=== PATIENT | male | born 1980 | race Two or more races ===

== ENCOUNTER 2021-02-19 14:11 | Outpatient (REF) | payer MEDICAID, SELFPAY ==
--- NOTE | ~2021-02-19 | XR_ITS ---
EXAMINATION: XR KNEE, RIGHT CLINICAL INFORMATION: Right knee pain. COMPARISON: Upright frontal views of both knee done on 02/28/2018 and 4 views of the right knee done on 11/12/2017. TECHNIQUE: Upright AP, lateral, tunnel, and sunrise views of the right knee. FINDINGS: The bony alignments are intact. The cortices are intact. Articular margins, joint space appear unremarkable. No evidence of any joint effusion. The soft tissues are unremarkable. Overall, no significant change since 02/28/2018 and 11/12/2017. XR/XR knee RT 3V IMPRESSION: Unremarkable radiographic appearance of the right knee, unchanged since prior study.
== END 2021-02-19 14:12 | disposition home or self-care (01) ==
LOC: HO.XRAY 14:11
PROVIDERS: Absent Provider Internal Medicine Geriatric Medicine; PCP Internal Medicine Geriatric Medicine; Visit Provider Emergency Medicine
DX: M25.561 Pain in right knee (principal)
CPT/HCPCS: 73562

== ENCOUNTER 2022-05-28 11:26 | Outpatient (REF) | payer MEDICAID, SELFPAY ==
--- NOTE | ~2022-05-28 | XR_ITS ---
EXAMINATION: XR KNEE, RIGHT CLINICAL INFORMATION: Chronic right knee pain COMPARISON: 02/19/2021 TECHNIQUE: Four views of the right knee. FINDINGS: Bones and soft tissues are normal. No fracture or joint effusion. Alignment is anatomic. Joint spaces are well maintained. No abnormal soft tissue calcification. XR/XR knee RT 4V IMPRESSION: Normal right knee.
--- NOTE | ~2022-05-28 | XR_ITS ---
EXAMINATION: XR SHOULDER, RIGHT CLINICAL INFORMATION: Chronic right shoulder pain COMPARISON: None TECHNIQUE: AP external rotation, Grashey, scapular Y, and axillary views of the right shoulder. FINDINGS: The bones and soft tissues are normal. No fracture. Glenohumeral and acromioclavicular alignment is anatomic with normal joint space. No abnormal soft tissue calcifications. XR/XR shoulder RT min 2V IMPRESSION: Normal right shoulder.
== END 2022-05-28 11:27 | disposition home or self-care (01) ==
LOC: HO.XRAY 11:26
PROVIDERS: PCP Internal Medicine Geriatric Medicine; Visit Provider Internal Medicine Geriatric Medicine
DX: M25.511 Pain in right shoulder (principal); M25.561 Pain in right knee
CPT/HCPCS: 73030; 73564

== ENCOUNTER 2023-08-04 07:28 | Outpatient (REF) | payer MEDICAID, SELFPAY ==
--- NOTE | ~2023-08-04 | MR_ITS ---
EXAMINATION: MR KNEE WITHOUT CONTRAST, RIGHT CLINICAL INFORMATION: Persistent chronic knee pain. COMPARISON: X-ray the right knee May 2022. TECHNIQUE: MRI of the knee without contrast was performed using routine sequences on a high-field scanner. FINDINGS: Exam is partially limited by image degrading motion artifact on multiple series with little improvement after series repetition. MENISCI: Medial Meniscus: Intact Lateral Meniscus: Intact LIGAMENTS: Cruciate: Intact Collateral: Intact EXTENSOR MECHANISM: Intact ARTICULAR CARTILAGE/BONE: Patellofemoral Compartment: Normal Medial Compartment: Normal Lateral Compartment: Normal JOINT FLUID AND BURSAE: Normal MR/MR knee RT wo con IMPRESSION: 1. Exam is partially limited by image degrading motion artifact on multiple series with little improvement after series repetition. 2. No abnormality detected.
== END 2023-08-04 07:29 | disposition home or self-care (01) ==
LOC: HO.MRI 07:28
PROVIDERS: PCP Internal Medicine Geriatric Medicine; Visit Provider Nurse Practitioner
DX: M25.561 Pain in right knee (principal); G89.29 Other chronic pain
CPT/HCPCS: 73721

== ENCOUNTER 2023-11-08 11:00 | Outpatient (RCR) | payer MEDICAID, SELFPAY | END 2023-11-08 13:46 | disposition home or self-care (01) | LOC: HO.PT 11:00 | PROVIDERS: PCP Internal Medicine Geriatric Medicine; Visit Provider Nurse Practitioner | DX: M54.50 Low back pain, unspecified (principal) | CPT/HCPCS: 97110; 97112; 97140; 97161 ==

== ENCOUNTER 2024-06-07 09:22 | Day surgery (SDC) | payer MEDICAID, SELFPAY ==
[2024-06-05 14:50] VITALS: BMI 25.8
--- NOTE | 2024-06-06 08:59 | HO.ANESPROP2 ---
Documented by User: Harini Fernandez NP 06/06/24 08:59 HPI - Anesthesia Eval Consult details Narrative: 43yo M for Colonoscopy [facility] Past Medical History Medical History Intermittent constipation Surgical History Surgical History No pertinent past surgical history Social History Social History Patient Tobacco Use Status: Current everyday Tobacco user Tobacco use type: Cigarette Cigarettes Per Day: 4 Use of substances other than those prescribed or required for medical reasons: Yes Substance Use Type Other:: last smoked 06/06 Substance Use Frequency: Daily Are you DNR?: No Advance Directives: No Advance Directives Information Provided: Yes Meds Allergies Allergy/AdvReac Type Severity Reaction Status Date / Time No Known Allergies Allergy Unverified 12/28/19 17:22 [No Known Allergies*] Home Medications ?Medication ?Instructions ?Recorded ?Confirmed ?Last Taken ?Type No Known Home Meds 06/05/24 06/05/24 Unknown History Exam Height,Weight and Vital Signs: Height 5 ft 8 in Weight 77.111 kg Assessment and Plan Assessment Anesthesia Assessment: Chart Reviewed Documented by User: Farzana Stewart MD 06/07/24 11:17 [facility] Past Medical History Medical History Intermittent constipation Family History Family history of problems with anesthesia: No Surgical History Surgical History No pertinent past surgical history History of Problems with Anesthesia: No Social History Social History Patient Tobacco Use Status: Current everyday Tobacco user Tobacco use type: Cigarette Cigarettes Per Day: 4 Use of substances other than those prescribed or required for medical reasons: Yes Substance Use Type Other:: last smoked 06/06 Substance Use Frequency: Daily Are you DNR?: No Advance Directives: No Advance Directives Information Provided: Yes Meds Allergies Allergy/AdvReac Type Severity Reaction Status Date / Time No Known Allergies Allergy Unverified 12/28/19 17:22 [No Known Allergies*] Home Medications ?Medication ?Instructions ?Recorded ?Confirmed ?Last Taken ?Type No Known Home Meds 06/05/24 06/05/24 Unknown History Exam Airway Mallampati Class: II TM Dist: >3cm Neck ROM: Full Heart: rrr Lungs: cta Assessment and Plan Assessment Anesthesia Assessment: Anesthesia Plan Discussed Final Anesthetic Review Family History of Problems with Anesthesia: No History of Problems with Anesthesia: No NPO: Yes ASA Class: III Final Preanesthetic Review: No Changes in Pt Med Stat, Meds/Allgs Chart Reviewed, Consent Obtained/Reviewed and Anes Risks/Benef Reviewed Patient Risk: Intermediate Procedure Risk: Low Anesthetic Plan Anesthetic Plan: MAC: Disposition: Standard PACU
[2024-06-07 10:48] VITALS: BP 113/83; PULSE 58; RESP 16; TEMP 36.4; O2SAT 100; BMI 25.8
[2024-06-07] MEDS: Lactated Ringers 1,000 ML 100 ML IVCONT (10:51)
[2024-06-07 12:01] VITALS: BP 86/52; PULSE 64; RESP 12; TEMP 36.3; O2SAT 97
--- NOTE | 2024-06-07 12:10 | PM.OP ---
Brief Operative Note Date of Service: 06/07/24 Pre-op diagnosis: Rectal bleeding Post-op diagnosis: other (Colon polyps, Internal/External Hemorrhoids) Procedure: Colonoscopy to the cecum and TI with hot snare polypectomy x 2 with placement of 2 Resolution clips on the polypectomy site at 30cm Surgeon: Gary Paez MD Anesthesia: MAC Was an Mechanical Design Drafter used for this Procedure?: No Estimated blood loss (mL): 0 Pathology: other (A. Polyp at 60cm B. Polyp at 30cm) Condition: stable Disposition: PACU
[2024-06-07 12:16] VITALS: BP 114/77; PULSE 77; RESP 16; O2SAT 97
[2024-06-07 12:31] VITALS: BP 114/76; PULSE 55; RESP 20; TEMP 36.2; O2SAT 100
--- NOTE | 2024-06-07 13:28 | OP_ITS ---
DATE OF SERVICE: 06/07/2024 SURGEON: Gary Paez MD INDICATIONS: The patient presents for evaluation of intermittent hematochezia. Full consent has been obtained from him for this, including risks of bleeding and perforation. PREOPERATIVE DIAGNOSIS: Hematochezia. POSTOPERATIVE DIAGNOSIS: PROCEDURE PERFORMED: Colonoscopy to the cecum and terminal ileum with hot snare polypectomy x2 with placement of 2 resolution clips on the polypectomy site at 30 cm. ESTIMATED BLOOD LOSS: COMPLICATIONS: ANESTHESIA: Medication used, monitored anesthesia care. ASSISTANTS: SPECIMENS: POSTOPERATIVE DIAGNOSES: Hematochezia, colon polyps, internal and external hemorrhoids. DESCRIPTION OF PROCEDURE: The patient was placed in the left side decubitus position. The digital rectal exam revealed some external hemorrhoidal tissue. The [employer] video pediatric colonoscope was entered into the rectum and advanced easily to the cecum. Once in the cecum, I did identify normal-appearing cecal pouch with appendiceal orifice and a normal-appearing ileocecal valve. The terminal ileum was cannulated and appeared normal. Scope was withdrawn back in the colon. The entire cecum and ileocecal valve appeared normal. The scope was slowly withdrawn assessing all mucosal surfaces carefully. Preparation was excellent. At 60 cm was an approximately 8 mm polyp, which was removed by hot snare polypectomy and recovered by suction. The polypectomy site appeared clean, without any sign of residual polyp nor bleeding. At 30 cm was an approximately 1.2 cm polyp on a short stalk, which was removed by hot snare polypectomy. The polyp was retrieved on the tip of the scope and brought out of the patient. The scope was readvanced back to the polypectomy site. The polypectomy site appeared clean, without any sign of residual polyp nor bleeding. Two resolution clips were applied to it with good deployment and good hemostasis. I did not visualize any other polyps, colitis, nor angiodysplasia. In the rectum, scope was retroflexed visualizing some internal hemorrhoids, but no other pathology. The rectal mucosa appeared normal. Scope was straightened and withdrawn from the patient. He tolerated the procedure well and was returned to the recovery area in stable condition. IMPRESSION: 1. Colon polyps. 2. Internal and external hemorrhoids. PLAN: The results of the pathology will be checked. I would recommend a repeat colonoscopy within 3 years assuming the polyps are tubular adenomas. He was advised not to use any aspirin and NSAIDs for at least 1 week. He was advised to use some Metamucil and/or MiraLAX regularly to help avoid constipation and straining as that has been an issue for him. He will otherwise see me on a p.r.n. basis. MD JAKOB Allred/BLAIR / [phone]
== END 2024-06-07 13:08 | disposition home or self-care (01) ==
PROVIDERS: PCP Internal Medicine Geriatric Medicine; Visit Provider Internal Medicine
PROC: 0DJD8ZZ Inspection of Lower Intestinal Tract, Via Natural or Artificial Opening Endoscopic (ICD-10-PCS; CPT 45378; principal; 2024-06-07 10:30)
DX: K92.1 Melena (principal); D12.4 Benign neoplasm of descending colon; D12.5 Benign neoplasm of sigmoid colon; K64.8 Other hemorrhoids; K64.4 Residual hemorrhoidal skin tags; K59.09 Other constipation; F17.210 Nicotine dependence, cigarettes, uncomplicated; Z56.0 Unemployment, unspecified
CPT/HCPCS: 45385; 88305; J2704

== ENCOUNTER 2024-07-21 12:08 | Outpatient (REF) | payer MEDICAID, SELFPAY ==
--- OUTSIDE RECORDS SUMMARY | 2024-07-21 12:56 | XMS_ITS ---
Author Organization [facility] Address [address] [place] [phone] Care Team Providers Care Geriatric Assistant Name Role Phone Name Angel MORRISSEY Primary Care Provider Gary Garrett [phone] REASON FOR VISIT hx of constipation with blood in stool Encounters Encounter Location Date Provider Diagnosis [facility] [address] [place] [phone] 03/21/2024 Gary Paez Plan Of Treatment No Information Progress Notes * GABRIELLE TOVAR LDOB:1980 (43 yo M)Acc No.[id number]:03/21/2024 Progress Notes Patient:?GABRIELLE TOVAR Provider:?Gary Paez MD :1980???Age:43 Y???Sex:Male Mykel e:03/21/2024 Address:[address] [place], [place] [phone] Pcp:Angel Paul MD Subjective: * Chief Complaints: * ???1. Hx of constipation wit h blood in stool. * Medical History:? Objective: * Vitals:? Assessment: Plan: * Treatment: * * The named appointment provid er may or may not be the originator of this progress note, and it is not deemed complete until electronically signed by the appointment provider. Sign off status: Pending * Provider:?Gary Paez MD Date:? 024 Generated for Al neff/José/eTransmitting on:?07/21/2024 11:06 AM EDT
--- OUTSIDE RECORDS SUMMARY | 2024-07-21 12:56 | XMS_ITS ---
Author Organization [facility] Address [address] [place] [address] Care Team Providers Care Motor Vehicle License Clerk Name Role Phone Name Angel MORRISSEY Primary Care Provider Gary Garrett [phone] REASON FOR VISIT Patient presents today for rectal bleeding Encounters Encounter Location Date Provider Diagnosis [facility] Out[facility] [address], [place] [phone] 06/07/2024 Gary Paez Rectal bleeding K6 2.5 and Colon polyps K63.5 Assessments Encounter Date Diagnosis (ICD Code) Assessment Notes Treatment Notes Treatment Clinical Notes Section Notes 06/07/2024 Rectal bleeding (ICD-10 - K62.5) 06/07/2024 Colon polyps (ICD-10 - K63.5) Plan Of Treatment No Information Progress Notes * GABRIELLE TOVAR LDOB:1980 (43 yo M)Acc No.[id number]:06/07/2024 COLON WITH MAC Patient:?GABRIELLE TOVAR Provider:?Gary Paez MD :1980???Age:43 Y???Sex:Male Mykel e:06/07/2024 Address:[address] [place] [address] Pcp:Angel Paul MD Subjective: * Chief Complaints: * ???1. Patient presents today for rectal bleeding. * Medical History:? Objective: * Vitals:? Assessment: * Assessment: 1.?Rectal bleeding - K62.5 ( Primary)???2.?Colon polyps - K63.5??? Plan: * Treatment: * Procedure Codes:?71217 LESIO N REMOVAL COLONOSCOPY, 38632 COLONOSCOPY/CONTROL BLEEDING, Modifiers: 59 * * The named appointment provid er may or may not be the originator of this progress note, and it is not deemed complete until electronically signed by the appointment provider. Sign off status: Pending * Provider:?Gary Paez MD Date:? 025 Generated for Al neff/José/Nbaitting on:?07/21/2024 11:06 AM EDT
--- OUTSIDE RECORDS SUMMARY | 2024-07-21 12:56 | XMS_ITS ---
Author Organization [facility] Address [address] [facility] [address] [place] [phone] Care Team Providers Care Slasher Sawyer Name Role Phone Name Angel MORRISSEY Primary Care Provider Gary Garrett [phone] REASON FOR VISIT bowel prep Medications Medication SIG (Take, Route, Frequency, Duration) Notes Start Date End Date Status Dulcolax (colon prep) 5 MG take at 3:00 p.m and 7:00p.m. Orally two tablets twice a day for one day for 1 day 03/18/2024 Active MiraLax (colon prep) 17 GM/SCOOP 1 238Gm bottle mixed with Gatorade or Crystal Light Orally begin at 5:00 p.m. the day before the procedure for 1 day 03/18/2024 Active Encounters Encounter Location Date Provider Diagnosis [address] [phone] 03/17/2024 Gary Paez Plan Of Treatment Medication Medication Name Sig Start Date Stop Date Notes Dulcolax (colon prep) 5 MG take at 3:00 p.m and 7:00p.m. Orally two tablets twice a day for one day for 1 day 03/18/2024 MiraLax (colon prep) 17 GM/SCOOP 1 238Gm bottle mixed with Gatorade or Crystal Light Orally begin at 5:00 p.m. the day before the procedure for 1 day 03/18/2024 Progress Notes * GABRIELLE TOVAR LDOB:1980 (43 yo M)Acc No.[id number]:03/17/2024 Patient:?LA GABRIELLE Vargas :1980???Age:43 Y???Sex:Male Address:[address] [place] [address], [address] * Refills? Start MiraLax (colon prep) Powder, 17 GM/SCOOP, Orally, 1, 1 238Gm bottle mixed with Gatorade or Crystal Light, begin at 5:00 p.m. the day before the procedure, 1 day, Refills=0 Start Dulcolax (colon prep) Tablet Delayed Release, 5 MG, Orally, 4, take at 3:00 p.m and 7:00p.m., two tablets twice a day for one day, 1 day, Refills=0 * true * Date:? Generated for Al neff/José/Dania on:?07/21/2024 12:55 PM EDT
--- OUTSIDE RECORDS SUMMARY | 2024-07-21 12:56 | XMS_ITS | Patient Health Record ---
Author Organization [facility] Address [address] [place] [address] Care Team Providers Care Console Operator Name Role Phone Name Angel MORRISSEY Primary Care Provider Gary Garrett [phone] Allergies No Known Allergies Results Component Value Reference Range Notes Pathology (Not yet reviewed by provider) Interpretation: Performing Lab:[facility], [address] [place] [phone] Notes/Report: Name: Jarod Acevedo Age/Sex: 43/M : 1980 Unit#: [id number] Attend Dr: Gary Lao MD Re06/07/24 Status : [facility] Location: [place] Disch: SPEC : [id number] RECD : 06/07/24-1205 STATUS: THALIA CRONIN NUM: [id number] KANU: 06/07/24-[address]: Gary Lao MD ENTERED: 06/07/24- SP TYPE: Surgical OTHR DR: Angel Paul MD ORDERED: HE Stain/6, Gross Micro L4/2 Diagnosis A. Colon, at 60 cm, polyp: Tubular adenoma; negative for high-grade dysplasia and carcinoma. B. Colon, at 30 cm, polyp: Tubulovillous adenoma, completely excised; negative for high-grade dysplasia and carcinoma. Clinical History Pre-Op Dx: Rectal bleeding Post-Op Dx: Colon po lyps, hemorrhoids Microscopic Description Microscopic sections reviewed. Material Received A. Polyp at 60 B. Polyp at 30 Gross Description Received in two parts. Part A: Received in formalin labeled ?polyp at 60? are 3 alvarenga-pink irregular and papular tissue fragments ran ging from 0.1-0.3 cm, submitted in toto in a cassette labeled A. Part B: Received in formalin labeled ?polyp at 30 is a 1.0 x 0.9 x 0.9 cm velvety, congested and hemorr hagic red-maroon papular tissue fragment. The resected base is inked and the specimen is sectioned and entirely submitted in a cassette labeled B. CEDS Copies To: Angel Paul MD [address] [place] [id number] CONTINUED ON NEXT PAGE Name: Jarod Acevedo Age/Sex: 43/M : 1980 Unit#: [id number] Attend Dr: Gary Lao MD Re06/07/24 Status : [facility] Location: [facility] Disch: SPEC : [id number] RECD : 06/07/24 STATUS: THAILA CRONIN NUM: [id number] KANU: 06/07/24-[address]: Gary Lao MD ENTERED: 06/07/24- SP TYPE: Surgical OTHR DR: Angel Paul MD ORDERED: WILLIAM Stain/6, Chelsea Benitez L4/2 Copies To: (Continued) Gary Lao MD [facility] [address] [place] [address] 110 Signed (si gnature on file) Doris Dallas 06/08/241214 END OF REPORT Reason For Referral Referring Provider First Name Angel Referring Provider Last Name Name Referring Provider Speciality Internal M edicine Referred Organization [facility] Referred Provider Gary aLo Referred Address [address] [facility] [address] [facility],[place],[address],[place] Referred Provider Specialty Gastroentero logy General Notes Merline Fernandez 024 01:44:57 PM EDT > REQUESTED A [place] REFERRAL FOR VISIT WITH DR LAO ON 03-21-2024 Referral Priority Routine Medications Medication SIG (Take, Route, Frequency, Duration) [...] the procedure for 1 day 03/18/2024 Active Immunizations Vaccine Route Administration Date Status Comme nts Influenza Unknown 03/15/2024 Refused Social History Tobacco Use: Social History Observation Description Date Details (start date - stop date) Current Smoker NA - NA Tobacco Use/Smoking Question Answer Notes Patient is a current smoker Alcohol Screen Question Answer Notes Did you have a drink contain ing alcohol in the past year? Yes How often did you have a dri nk containing alcohol in the past year? 4 or more times a week (4 points) How many drinks did you have on a typical day when you were drinking in the past year? 3 or 4 drinks (1 point) How often did you have 6 or more drinks on one occasion in the past year? Never (0 point) Points 5 Interpretation Positive Section Notes: Smoker 4-5 cigs QD; 2-3 25 o unce beers QOD Problems Problem Type SNOMED Code ICD Code Onset Dates Problem Status W/U Status Risk Notes Problem Rectal bleeding (88109896) Rectal bleeding (K62.5) Active confirmed Vital Signs Temperature 96.9 degrees Fahrenheit 03/15/2024 Blood pressure diastolic 00 mm Hg 03/15/2024 Height 5 ft 8 in in 03/15/2024 Blood pressure systolic 000 mm Hg 03/15/2024 Weight 170 lbs 03/15/2024 BMI 25.85 kg/m2 03/15/2024 Encounters Encounter Location Date Provider Diagnosis [facility] Outpatient [address], [place] [phone] 06/07/2024 Gary Lao Rectal bleeding K62.5 and Colon polyps K63.5 [facility] [address] [facility] [address] [place] [phone] 03/15/2024 Gary Lao Rectal bleeding K62.5 [facility] [address] [place] [phone] 03/17/2024 Gary Lao Assessments Encounter Date Diagnosis (ICD Code) Assessment Notes Treatment Notes Treatment Clinical Notes Section Notes 06/07/2024 Rectal bleeding (ICD-10 - K62.5) 06/07/2024 Colon polyps (ICD-10 - K63.5) 03/15/2024 Rectal bleeding (ICD-10 - K62.5) Overall, Jarod appears well. His intermittent hematochezia seems quite consistent with that of a perianal source such as a hemorrhoid given the associated constipation and straining. We did review that he should try to increase his dietary fiber and fluid intake, as well as using a supplemental fiber source such as Metamucil and/or a stool softener if needed, so as to improve his constipation. Given his age approaching 44, I did recommend a colonoscopy for evaluation to rule out any other source of bleeding such as a polyp. We did review the rationale for this in regard to colorectal cancer prevention and/or early detection. Full onsent was obtained from him for this, including risks of bleeding and perforation. The procedure will be done with monitored anesthesia care. Of note, I did advise Jarod that he should try to eliminate alcohol and tobacco from his lifestyle. Jarod was comfortable with this plan. Thank you again for allowing me to participate in Jarod's care. I shall continue to keep you advised of his progress. Plan Of Treatment Pending Test Test Name Order Date Pathology 06/07/2024 Future Test Test Name Order Date COLONOSCOPY 03/15/2024 Insurance Providers Payer Name Payer Address Payer Phone Subscriber Number Group Number Insured Name Patient Relationship to Insured Coverage Start Date Coverage End Date [employer]ICA[employer] [address] [place] [address] [id number] JAROD TOVAR Self - patient is the insured Medical (General) History Medical History History ICD Code Denies [place],DM,CVA,Lung disease,renal dise ase Surgical History Surgery Date(Month/Year)
[2024-07-21 14:06] LABS: HIV AB/AG Nonreactive (Nonreactive); ~HepC Num1 0.22 S/CO (0.00-0.79); ~Hepatitis C Antibody Nonreactive (Nonreactive)
[2024-07-21 14:13] LABS: TSH reflex Free T4 1.18 uIU/mL (0.32-4.0)
== END 2024-07-21 12:09 | disposition home or self-care (01) ==
LOC: HO.HHCL 12:08
PROVIDERS: Visit Provider Internal Medicine Geriatric Medicine
DX: A64 Unspecified sexually transmitted disease (principal); F32.3 Major depressive disorder, single episode, severe with psychotic features
CPT/HCPCS: 36415; 84443; 86803; 87389